=== PATIENT | female | born 1940 | race Caucasian/White ===

== ENCOUNTER 2022-05-01 19:16 | Emergency (ER) | payer MEDICARE, OTHER ==
[2022-05-01 20:49] LABS: BASOPHIL 0.7 % (0-2); EOSINOPHIL 0.4 % (0-7); HCT 40.1 % (37.0-47.0); HGB 13.1 g/dl (12.5-16.0); LYMPHOCYTE 9.6 % (15-48); MCH 31.6 pg (25.0-31.0); MCHC 32.7 g/dL (32.0-36.0); MCV 96.9 fL (78.0-100.0); MONOCYTE 9.3 % (0-12); MPV 9.9 fL (6.0-9.5); NEUTROPHIL 79.4 % (41-80); NRBC 0; PLT 212 K/uL (150-400); RBC 4.14 M/uL (4.20-5.40); RDW 13.8 % (11.5-14.0); WBC 8.5 K/uL (4.0-10.5)
[2022-05-01 21:18] LABS: CREATININE 0.83 mg/dL (0.51-0.95); POTASSIUM 4.9 mmol/L (3.5-5.1)
[2022-05-01 21:19] LABS: ALBUMIN 3.4 g/dL (3.4-5.0); BILIRUBIN - TOTAL 0.6 mg/dL (0.2-1.0); TOTAL PROTEIN 7.4 g/dL (6.4-8.2)
== END 2022-05-01 23:15 | disposition home or self-care (01) ==
LOC: FER 19:16
PROVIDERS: Emergency Medicine
DX: R55 Syncope and collapse (principal); W19.XXXA Unspecified fall, initial encounter; Y92.009 Unspecified place in unspecified non-institutional (private) residence as the place of occurrence of the external cause
CPT/HCPCS: 36415; 71045; 80053; 83880; 84484; 85025; 93005